=== PATIENT | female | born 1985 | race Caucasian/White ===

== ENCOUNTER 2016-11-11 12:08 | Emergency (ER) | payer OTHER ==
[2014-08-19 07:23] VITALS: BP 115/76
[~2016-11-11] VITALS: Ht 154.9 cm; Wt 68.0 kg
--- NOTE | 2016-11-11 12:33 | PHYS DOC ---
Past Medical History Past Medical History: Other Additional Past Medical Histor: HEP C Past Surgical History: Tonsillectomy, Other Alcohol Use: Occasionally Drug Use: None Adult General Chief Complaint Chief Complaint: SORE THROAT HPI HPI Patient is a 31 year old female presents the ED complaining of sore throat 2 days. Patient states that the sore throat started when she woke up. Associated symptoms include rhinorrhea and itchy eyes. Denies chest pain, shortness breath , dizziness, fever, headache, vision changes, abdominal pain or nausea/vomiting. Review of Systems Review of Systems Constitutional: Denies fever or chills [] Eyes: Denies change in visual acuity, redness, or eye pain [] HENT: Complains of sore throat and nasal congestion[] Respiratory: Denies cough or shortness of breath [] Cardiovascular: No additional information not addressed in HPI [] GI: Denies abdominal pain, nausea, vomiting, bloody stools or diarrhea [] : Denies dysuria or hematuria [] Musculoskeletal: Denies back pain or joint pain [] Integument: Denies rash or skin lesions [] Neurologic: Denies headache, focal weakness or sensory changes [] Endocrine: Denies polyuria or polydipsia [] Allergies Allergies Allergies Coded Allergies Type Severity Reaction Last Updated Verified No Known Drug Allergies 08/19/14 No Physical Exam Physical Exam Constitutional: Well developed, well nourished, no acute distress, non-toxic appearance. [] HENT: Normocephalic, atraumatic, bilateral external ears normal, oropharynx moist, MILD PHARYNGEAL ERYTHEMA, no oral exudates, nose normal. [] Eyes: PERRLA, EOMI, conjunctiva normal, no discharge. [] Neck: Normal range of motion, no tenderness, supple, no stridor. [] Cardiovascular:Heart rate regular rhythm, no murmur [] Lungs & Thorax: Bilateral breath sounds clear to auscultation [] Abdomen: Bowel sounds normal, soft, no tenderness, no masses, no pulsatile masses. [] Skin: Warm, dry, no erythema, no rash. [] Back: No tenderness, no CVA tenderness. [] Extremities: No tenderness, no cyanosis, no clubbing, ROM intact, no edema. [] Neurologic: Alert and oriented X 3, normal motor function, normal sensory function, no focal deficits noted. [] Psychologic: Affect normal, judgement normal, mood normal. [] Current Patient Data Vital Signs Vital Signs Date Time Temp Pulse Resp B/P (MAP) Pulse Ox O2 Delivery O2 Flow Rate FiO2 11/11/16 12:24 98.3 86 16 95 Room Air 98.3 Lab Values Laboratory Tests Test 11/11/16 12:51 Group A Streptococcus Rapid Negative (NEGATIVE) EKG EKG [] Radiology/Procedures Radiology/Procedures [] Course & Med Decision Making Course & Med Decision Making Pertinent Labs and Imaging studies reviewed. (See chart for details) [] Dragon Disclaimer Dragon Disclaimer This electronic medical record was generated, in whole or in part, using a voice recognition dictation system. Departure Departure Impression: Primary Impression: Upper respiratory infection Disposition: HOME, SELF-CARE Condition: STABLE Referrals: NO PCP (PCP) SILVA ACKERMAN MD Patient Instructions: Upper Respiratory Infection, Adult Scripts Methylprednisolone (MEDROL) 4 Mg Tab.ds.pk 1 PKG PO UD, #1 PKG Prov: NOHEMI FERREIRA 11/11/16 NOHEMI FERREIRA Nov 11, 2016 12:33
[2016-11-11] MEDS ORDERED: METH4TAB2 PO (12:56)
[2016-11-11 12:59] LABS: NEGATIVE OBC STREP NEG; POSITIVE OBC STREP POS
== END 2016-11-11 13:00 | disposition home or self-care (01) ==
LOC: ER 12:08
DX: J06.9 Acute upper respiratory infection, unspecified (principal); H57.8 Other specified disorders of eye and adnexa
CPT/HCPCS: 87070; 87880; 99283

== ENCOUNTER 2018-04-17 02:00 | Emergency (ER) | payer OTHER ==
[~2018-04-17] VITALS: Ht 154.9 cm; Wt 63.5 kg
[2018-04-17 02:00] VITALS: BP 152/81
[~2018-04-17 02:00] MED LIST: METH4TAB2 PO
[2018-04-17] MEDS ORDERED: HYDR-3164 PO (02:23)
[2018-04-17] MEDS ORDERED: CLIN300C8 PO (02:23)
--- NOTE | 2018-04-17 02:23 | PHYS DOC ---
Past Medical History Past Medical History: Other Additional Past Medical Histor: HEP C Past Surgical History: Tonsillectomy, Tubal ligation, Other Additional Information: nonsmoker Alcohol Use: None Drug Use: Marijuana Adult General Chief Complaint Chief Complaint: HAND PROBLEM HPI HPI 32-year-old female presents with right hand pain and swelling primarily to dorsum which started and has progressively become worse. Reports subjective fever and chills. Patient denies known injury. Denies known insect bite. Patient does have a history of dry hands and thinks they may have become cracked which was cause of infection. Denies . Denies diabetes or other immunocompromise state. Review of Systems Review of Systems Constitutional: Reports subjective fever and chills [] Eyes: Denies change in visual acuity, redness, or eye pain [] HENT: Denies nasal congestion or sore throat [] Respiratory: Denies cough or shortness of breath [] Cardiovascular: Denies chest pain or palpitations GI: Denies abdominal pain, nausea, or vomiting : Denies dysuria or hematuria [] Musculoskeletal: Reports right hand pain Integument: Reports right hand redness and swelling Neurologic: Denies headache, focal weakness or sensory changes [] Complete systems were reviewed and found to be within normal limits, except as documented in this note. Current Medications Current Medications Current Medications Medications (Trade) Dose Ordered Sig/Bryon Start Time Stop Time Status Last Admin Dose Admin Acetaminophen/ Hydrocodone Bitart (Lortab 5/325) 1 tab 1X ONCE 04/17/18 03:00 04/17/18 03:00 DC 04/17/18 02:34 1 TAB Clindamycin HCl (Cleocin) 300 mg 1X ONCE 04/17/18 03:00 04/17/18 03:00 DC Allergies Allergies Allergies Coded Allergies Type Severity Reaction Last Updated Verified No Known Drug Allergies 08/19/14 No Physical Exam Physical Exam Constitutional: Well developed, well nourished, no acute distress, non-toxic appearance. [] HENT: Normocephalic, atraumatic Eyes: Conjunctiva normal, no discharge. [] Neck: Normal range of motion, no tenderness, supple Cardiovascular: Heart rate regular rhythm, no murmur [] Lungs & Thorax: Bilateral breath sounds clear to auscultation [] Skin: Warm, dry, mild erythema to dorsum of right hand, no rash. [] Extremities: Dorsum of right hand with tenderness to palpation, mild erythema with induration noted, no cyanosis, ROM intact, 1+ edema consolidated to hand. [] Neurologic: Alert and oriented X 3, , no focal deficits noted. [] Psychologic: Affect normal, judgement normal, mood normal. [] Current Patient Data Vital Signs Vital Signs Date Time Temp Pulse Resp B/P (MAP) Pulse Ox O2 Delivery O2 Flow Rate FiO2 04/17/18 02:34 18 99 Room Air 04/17/18 02:00 98.3 116 152/81 (104) 98.3 EKG EKG [] Radiology/Procedures Radiology/Procedures [] Course & Med Decision Making Course & Med Decision Making Patient presents with history of present illness and physical exam consistent for right hand cellulitis. No focal fluctuance appreciated. Empiric antibiotics initiated. Pain addressed. Patient stable for discharge with outpatient follow- up with PCP. Discussed findings and plan with patient and family, who acknowledge understanding and agreement. Dragon Disclaimer Dragon Disclaimer This electronic medical record was generated, in whole or in part, using a voice recognition dictation system. Departure Departure Impression: Primary Impression: Cellulitis of right hand Disposition: HOME, SELF-CARE Condition: STABLE Referrals: NO PCP (PCP) Patient Instructions: Cellulitis, [id number] Scripts Clindamycin Hcl (CLINDAMYCIN HCL) 300 Mg Capsule 1 CAP PO TID for Cellulitis, #30 CAP Prov: SILVA WADDELL DO 04/17/18 Hydrocodone/Apap 5-325 (NORCO 5-325 TABLET) 1 Each Tablet 1 TAB PO PRN Q6HRS PRN for PAIN, #10 TAB 0 Refills Prov: SILVA WADDELL DO 04/17/18 SILVA WADDELL DO Apr 17, 2018 02:23
[2018-04-17] MEDS ORDERED: CLINDAMYCIN HCL 150 MG CAPSULE. PO ONE (03:00)
[2018-04-17] MEDS ORDERED: HYDROcodone/APAP 5/325MG 1 TAB TABLET PO ONE (03:00)
== END 2018-04-17 02:40 | disposition home or self-care (01) ==
LOC: ER 02:00
DX: L03.113 Cellulitis of right upper limb (principal)
CPT/HCPCS: 99283

== ENCOUNTER 2018-11-30 13:16 | Emergency (ER) | payer OTHER ==
[~2018-11-30] VITALS: Ht 154.9 cm; Wt 59.0 kg
[~2018-11-30 13:16] MED LIST changes: +CLIN300C8 PO; +DOXY100C2 PO; +HYDR-3164 PO
--- NOTE | 2018-11-30 13:37 | PHYS DOC ---
Past Medical History Past Medical History: No Pertinent History Additional Past Medical Histor: HEP C Past Surgical History: Tonsillectomy, Tubal ligation, Other Alcohol Use: None Drug Use: None Adult General Chief Complaint Chief Complaint: LOWER EXT PAIN HPI HPI Patient is a 33 year old female who presents with last night began having right medial knee pain that she could fill radiating down her leg. She states it is not so much pain as it is a discomfort. Patient rates her discomfort at a 6 out of 10. Review of Systems Review of Systems Musculoskeletal: Denies back pain. Medial knee joint pain [] All other systems were reviewed and found to be within normal limits, except as documented in this note. Allergies Allergies Allergies Coded Allergies Type Severity Reaction Last Updated Verified No Known Drug Allergies 07/31/18 No Physical Exam Physical Exam Constitutional: Well developed, well nourished, no acute distress, non-toxic appearance. [] Skin: Warm, dry, no erythema, no rash. [] Extremities: No tenderness, no cyanosis, no clubbing, ROM intact, right leg and 1+ edema. [] Neurologic: Alert and oriented X 3, normal motor function, normal sensory function, no focal deficits noted. [] Psychologic: Affect normal, judgement normal, mood normal. [] Current Patient Data Vital Signs Vital Signs Date Time Temp Pulse Resp B/P (MAP) Pulse Ox O2 Delivery O2 Flow Rate FiO2 11/30/18 13:39 99.2 100 18 137/78 (97) 100 Room Air 99.2 Lab Values Laboratory Tests Test 11/30/18 13:44 POC Urine HCG, Qualitative Hcg negative (Negative) EKG EKG [] Radiology/Procedures Radiology/Procedures [] Impressions: [facility] [address] [place], [place] [id number] IMAGING REPORT Signed PATIENT: DEMETRI SMALLWOOD ACCOUNT: [id number] : 1985 LOCATION: ER AGE: 33 SEX: F EXAM STATUS: REG ER ORD. PHYSICIAN: MARK PACHECO APRN REASON: swelling, pain PROCEDURE: VENOUS LOWER EXTREMITY RIGHT Examination: VENOUS LOWER EXTREMITY RIGHT History: Swelling and pain Comparison/Correlation: None FINDINGS: Right lower extremity duplex venous ultrasound exam was performed. Grayscale, color Doppler, and spectral Doppler imaging was performed. Compression and augmentation was performed. The right common femoral vein, superficial femoral vein, popliteal vein, and greater saphenous vein are normal with no evidence of deep venous thrombus. Visualized posterior tibial and peroneal veins are unremarkable. Normal compressibility and augmentation is evident. IMPRESSION: Normal right lower extremity duplex ultrasound exam. No evidence of deep venous thrombus involving the right lower extremity. Electronically signed by: Derrek Kerr MD (11/30/2018 2:08 PM) [facility] DICTATED and SIGNED BY: DERREK KERR MD DATE: 11/30/18 1408 Course & Med Decision Making Course & Med Decision Making No calf tenderness. Skin pink warm and dry. Popliteal pulses present. Patient denies skin temperature change or color change. Patient states that the medial knee swelled up last night. Patient has 1+ swelling in that extremity but when comparing extremities there is not much of a difference seen. No tenderness to palpation to the knee or the leg itself. Patient denies injury. There is no deformity, bruising or abrasions. She does and laboratory with a steady gait. Patient denies any numbness or tingling. Patients boyfriend tells nursing staff that the patient is a IV drug user and not to let the patient know that he told us. 1400: Patient had US done but refused xray. Patient eloped without telling nursing staff and before US was read by radiology. Beata Disclaimer Dragon Disclaimer This electronic medical record was generated, in whole or in part, using a voice recognition dictation system. Departure Departure Impression: Primary Impression: Leg pain Disposition: 07 AGAINST MEDICAL ADVICE Condition: STABLE (ELOPED) Referrals: NO PCP (PCP) Problem Qualifiers Primary Impression: Leg pain Laterality: right Qualified Codes: M79.604 - Pain in right leg MARK PACHECO MANAGER ECONOMIC Nov 30, 2018 13:37
[2018-11-30 13:39] VITALS: BP 137/78
--- NOTE | 2018-11-30 14:11 | RAD ---
Examination: VENOUS LOWER EXTREMITY RIGHT History: Swelling and pain Comparison/Correlation: None FINDINGS: Right lower extremity duplex venous ultrasound exam was performed. Grayscale, color Doppler, and spectral Doppler imaging was performed. Compression and augmentation was performed. The right common femoral vein, superficial femoral vein, popliteal vein, and greater saphenous vein are normal with no evidence of deep venous thrombus. Visualized posterior tibial and peroneal veins are unremarkable. Normal compressibility and augmentation is evident. IMPRESSION: Normal right lower extremity duplex ultrasound exam. No evidence of deep venous thrombus involving the right lower extremity. Electronically signed by: Derrek Pittman MD (11/30/2018 2:08 PM) [facility]
== END 2018-11-30 14:00 | disposition left against medical advice (07) ==
LOC: ER 13:16
DX: M25.561 Pain in right knee (principal); M79.604 Pain in right leg; Z90.89 Acquired absence of other organs; Z98.51 Tubal ligation status
CPT/HCPCS: 81025; 93971; 99284

== ENCOUNTER 2020-05-21 01:09 | Emergency (ER) | payer OTHER ==
[~2020-05-21] VITALS: Ht 154.9 cm; Wt 63.6 kg
[2020-05-21 01:09] VITALS: BP 138/88
[~2020-05-21 01:09] MED LIST changes: -CLIN300C8 PO; +CLIN300C9 PO
[2020-05-21] MEDS ORDERED: CEPH500T PO (01:37)
--- NOTE | 2020-05-21 01:37 | PHYS DOC ---
Past Medical History Past Medical History: No Pertinent History Additional Past Medical Histor: HEP C Past Surgical History: Tubal ligation Smoking Status: Former Smoker Alcohol Use: None Drug Use: None General Adult EDM: Chief Complaint: HAND PROBLEM HPI: HPI: Patient is a 34 year old female with past medical history of IVDA presents for evaluation of swelling and pain of left hand. Onset of symptoms yesterday after injecting heroin in left hand. Since injection pain and swelling has increased. Injection sight proximal to left thumb. Swelling and redness is of left hand and thumb. Review of Systems: Review of Systems: Review of systems: Constitutional symptoms- No fever, no chills. Eyes- No Discharge, No Visual Loss Respiratory symptoms- No shortness of breath, No wheezing, No Dyspnea on Exertion Cardiovascular Systems; No chest pain, No Palpitations, No syncope Gastrointestinal symptoms: NO abdominal pain, no nausea, no vomiting or diarrhea. Genitourinary symptoms: No dysuria. Musculoskeletal symptoms: No back pain No extremity pain. positive hand pain NEUROLOGICAL Symptoms: No headache, no generalized weakness; No focal Weakness Skin positive cellulitis Heart Score: C/O Chest Pain: N/A Risk Factors: Risk Factors: DM, Current or recent (<one month) smoker, HTN, HLP, family history of CAD, obesity. Risk Scores: Score 0 - 3: 2.5% MACE over next 6 weeks - Discharge Home Score 4 - 6: 20.3% MACE over next 6 weeks - Admit for Clinical Observation Score 7 - 10: 72.7% MACE over next 6 weeks - Early Invasive Strategies Allergies: Allergies: Allergies Coded Allergies Type Severity Reaction Last Updated Verified No Known Drug Allergies 07/31/18 No Physical Exam: PE: General: alert, no acute distress. Skin: Left hand thumb index middle finger swollen warm to the touch there is an open wound just proximal to the thumb on the posterior aspect no active bleeding. Head:: Normocephalic, atraumatic. Neck: Trachea midline. Eyes: EOMI, Normal conjunctiva, No drainage CARDIOVASCULAR: Regular rate and rhythm RESPIRATORY: No respiratory distress Back: Full range of motion. MUSCULOSKELETAL: Full range of motion of bilateral upper and lower extremities. Patient has full range of motion of her left hand wrist fine motor movement of digits intact GASTROINTESTINAL: Abdomen soft without rebound or guarding. NEUROLOGICAL: Alert and noted to person, place and time. No neurological deficits observed Psychiatric: Cooperative. Normal judgment EKG: EKG: [] Radiology/Procedures: Radiology/Procedures: [] Course & Med Decision Making: Course & Med Decision Making Pertinent Labs and Imaging studies reviewed. (See chart for details) [] Patient with cellulitis of left hand due to IV drug abuse. Dragon Disclaimer: Martiron Disclaimer: This electronic medical record was generated, in whole or in part, using a voice recognition dictation system. Departure Departure Impression: Primary Impression: Cellulitis Additional Impression: IVDU (intravenous drug user) Disposition: 01 DC HOME SELF CARE/HOMELESS Condition: STABLE Referrals: NO PCP Patient Instructions: Cellulitis, Drug Abuse and Addiction-[employer] Scripts Cephalexin (CEPHALEXIN) 500 Mg Tablet 500 MG PO QID for 10 Days, #40 TAB Prov: JHONATHAN PITT DO 05/21/20 JHONATHAN PITT DO May 21, 2020 01:37
== END 2020-05-21 02:19 | disposition home or self-care (01) ==
LOC: ER 01:09
DX: L03.114 Cellulitis of left upper limb (principal); R60.0 Localized edema; F19.10 Other psychoactive substance abuse, uncomplicated; Z87.891 Personal history of nicotine dependence; Z98.51 Tubal ligation status
CPT/HCPCS: 99283